=== PATIENT | male | born 1975 | race Caucasian/White ===

== ENCOUNTER → 2020-07-30 | Outpatient (CLI) | payer BC ==
--- NOTE | 2020-07-31 03:26 | MR ---
EXAMINATION TYPE: MR knee RT wo con DATE OF EXAM: 07/30/2020 COMPARISON: None HISTORY: Right knee pain, hx past injury Multiplanar multiecho imaging of the right knee was performed without contrast. FINDINGS: The anterior and posterior cruciate ligaments are intact. The collateral ligaments are intact. There is moderate knee joint effusion. There is subcutaneous edema anterior to the patella tendon. There is horizontal tear through the posterior horn of the lateral meniscus. This extends to the free margin. There is intrasubstance horizontal tear of the anterior and posterior horn of the medial men iscus. There is osteoarthritic medial joint space narrowing. There is no evidence of a fracture. I se e no bony destructive process. There is minor spurring of the femoral and tibial condyles. IMPRESSION: Medial and lateral meniscal tears as above. 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 No ligamentous tear. Knee joint effusion.
== END | disposition home or self-care (01) ==
LOC: RADMRIMAIN 21:34
PROVIDERS: ATTEND Orthopaedic Surgery
DX: S83.241A Other tear of medial meniscus, current injury, right knee, initial encounter (principal); M17.11 Unilateral primary osteoarthritis, right knee

== ENCOUNTER 2020-10-30 14:11 | Day surgery (SDC) | payer BC ==
[2020-10-26 11:01] VITALS: BMI 51.1
[~2020-10-30 14:11] MED LIST: DEXAMETHASONE SOD PHOSPHATE 4 MG/ML 1 ML VIAL IV ONE; ONDANSETRON 4 MG/2 ML VIAL IVP ONE; Pre Op ABX Message 1 EACH MISC MISCELLANE ONE
[2020-10-30] MEDS ORDERED: ceFAZolin 3 GM in SODIUM CHLORIDE 0.9% 100 ML IVPB ONE (14:37)
[2020-10-30] MEDS: LACTATED RINGERS 1,000 ML IV SCH ×2 (14:49→15:24)
[2020-10-30 15:12] LABS: ALT 42 U/L (4-49); AST 38 U/L (17-59); African American GFR (CKD) >90 (>60 ml/min/1.73 sqM); Albumin 4.3 g/dL (3.5-5.0); Alkaline Phosphatase 65 U/L (38-126); Anion Gap 9 mmol/L; Blood Urea Nitrogen 15 mg/dL (9-20); Calcium 9.2 mg/dL (8.4-10.2); Carbon Dioxide 23 mmol/L (22-30); Chloride 104 mmol/L (98-107); Glucose 105 mg/dL (74-99); Non-African American GFR(CKD) >90 (>60 ml/min/1.73 sqM); Potassium 4.8 mmol/L (3.5-5.1); Sodium 136 mmol/L (137-145); Total Bilirubin 0.8 mg/dL (0.2-1.3); Total Protein 7.3 g/dL (6.3-8.2)
[2020-10-30] MEDS ORDERED: SUCCINYLCHOLINE CHLORIDE VIAL 200 MG/10 ML VIAL IV ONE (15:20)
[2020-10-30] MEDS ORDERED: KETAMINE 10 MG/ML 20 ML VIAL ONE (15:20)
[2020-10-30] MEDS ORDERED: KETOROLAC 15 MG/ML 1 ML VIAL ONE (15:20)
[2020-10-30] MEDS ORDERED: MIDAZOLAM 2 MG/2 ML VIAL ONE (15:20)
[2020-10-30] MEDS ORDERED: fentaNYL (PF) 50 MCG/ML 2 ML AMP ONE (15:20)
[2020-10-30] MEDS ORDERED: PHENYLEPHRINE 10 MG/ML VIAL ONE (15:20)
[2020-10-30] MEDS ORDERED: LIDOCAINE 1% INJ 10MG/ML (20 ML MDV) ONE (15:20)
[2020-10-30] MEDS ORDERED: PROPOFOL 10 MG/ML 20 ML VIAL IV ONE (15:20)
[2020-10-30] MEDS ORDERED: BUPIVACAINE (PF) 0.5% 30 ML VIAL SQ ONE (15:59)
--- NOTE | 2020-10-30 16:07 | P.OP ---
Date of Procedure: 10/30/20 Preoperative Diagnosis: Torn medial and lateral meniscus right knee Postoperative Diagnosis: 1. Torn medial meniscus right knee 2. Torn lateral meniscus right knee 3. 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 Synovitis Procedure(s) Performed: 1. Arthroscopy of the right knee with partial medial meniscectomy (20% of meniscus excised) 2. Partial lateral meniscectomy (10% of meniscus excised) 3. Chondroplasties of the medial femoral, lateral femoral, and patellofemoral compartments 4. Partial synovectomy of the medial femoral, lateral femoral, patellofemoral compartments Anesthesia: GRETCHEN Surgeon: Vineet Espitia Estimated Blood Loss (ml): 5 Pathology: none sent Condition: stable Disposition: PACU Indications for Procedure: This is a 45-year-old gentleman that presented to my office with pain in his right knee. MRI demonstrated torn medial lateral meniscus and after discussing the surgical nonsurgical treatment options at length he wishes to proceed with arthroscopic debridement of his right knee. Informed consent was obtained. Operative Findings: The operative findings are consistent with a torn medial lateral meniscus, grade 2-3 chondromalacia of the medial femoral, lateral femoral, and patellofemoral compartments. There was also synovitis present Description of Procedure: Patient was seen and evaluated in the preoperative area, the operative site was marked with a skin marker. The patient was then brought to the operating room and given 3 g of Ancef intravenously. A general anesthetic was administered by the anesthesia department. Tourniquet was placed on the right upper thigh and the right lower extremity was then prepped and draped in usual sterile fashion. A universal timeout was then performed confirming the patient's name, surgical site, ALLERGIES, and consent. The limb was then exsanguinated and tourniquet insufflated to 350 mmHg. Standard inferior medial and inferior lateral portals were established in the knee. The trochar was inserted in the inferolateral portal. Examination began at the patellofemoral joint. There is noted to be grade 2-3 chondral malacia the patellofemoral compartment and a moderate amount of synovitis. Next the medial compartment was visualized. There was a tear of the posterior horn of the medial meniscus. There was grade 2-3 chondral malacia the mediofemoral compartment and synovitis. The notch area was then visualized and the ACL WAS intact. The Lateral compartment was then visualized and the lateral meniscus was found to be intact, there was no evidence of chondr omalacia, but a mild amount of synovitis. Next, using an arthroscopic shaver and a biter, partial medial meniscectomy was performed stable margins. Approximately 20% of meniscus was excised. A partial lateral meniscectomy was performed to proximally 10% meniscus excised. A partial synovectomy is performed the medial femoral, lateral femoral, patellofemoral compartments. Chondroplasty was also performed of the medial femoral, lateral femoral, and patellofemoral compartments of the knee. Knee was then copiously irrigated, instruments removed, incisions were closed with 4-0 nylon. 30 mL of quarter percent plain Marcaine were injected sterilely into the surgical area. A sterile dressing was then applied, and the tourniquet was released. Patient was then transferred to recovery room in stable condition.
[2020-10-30] MEDS ORDERED: BUPIVACAINE (PF) 0.5% 30 ML VIAL INTRAARTIC ONE (16:14)
[2020-10-30 16:30] VITALS: TEMP 97
[2020-10-30] MEDS: HYDROmorphone 0.5 MG/0.5 ML SYRINGE IVP PRN ×2 (16:41→16:46)
[2020-10-30] MEDS ORDERED: HYDROcodone/APAP 7.5-325MG 1 EACH TAB PO ONE (17:00)
[2020-10-30 17:05] VITALS: RESP 16
[2020-10-30] MEDS ORDERED: HYDROcodone/APAP 7.5-325MG 1 EACH TAB ONE (17:15)
[2020-10-30 17:25] VITALS: BP 139/88; PULSE 81
== END 2020-10-30 18:56 | disposition home or self-care (01) ==
LOC: OR 14:11
PROVIDERS: ATTEND Orthopaedic Surgery
DX: S83.241A Other tear of medial meniscus, current injury, right knee, initial encounter (principal); S83.281A Other tear of lateral meniscus, current injury, right knee, initial encounter; M94.261 Chondromalacia, right knee; M65.861 Other synovitis and tenosynovitis, right lower leg; M17.11 Unilateral primary osteoarthritis, right knee; Z87.828 Personal history of other (healed) physical injury and trauma; I10 Essential (primary) hypertension; E78.5 Hyperlipidemia, unspecified; K08.89 Other specified disorders of teeth and supporting structures; K08.409 Partial loss of teeth, unspecified cause, unspecified class; G47.33 Obstructive sleep apnea (adult) (pediatric); K21.9 Gastro-esophageal reflux disease without esophagitis; Z97.3 Presence of spectacles and contact lenses; Z98.890 Other specified postprocedural states; Z87.891 Personal history of nicotine dependence; Z79.899 Other long term (current) drug therapy; Z79.1 Long term (current) use of non-steroidal anti-inflammatories (NSAID); Z90.49 Acquired absence of other specified parts of digestive tract; X50.1XXA Overexertion from prolonged static or awkward postures, initial encounter; Y92.89 Other specified places as the place of occurrence of the external cause; Y99.0 Civilian activity done for income or pay; Z83.3 Family history of diabetes mellitus; Z82.49 Family history of ischemic heart disease and other diseases of the circulatory system
CPT/HCPCS: 80053; 29880; J2250; J0330; J1100; J2370; J0690; J2405; J2001; J3010; J1885; J2704; J1170